=== PATIENT | female | born 1995 | race Caucasian/White ===

== ENCOUNTER → 2016-12-31 | Outpatient (CLI) | payer OTHER ==
[~2016-12-31] MED LIST: ALPRAZOLAM0.25 M2 PO; AVPAK AZITHROM250 MG PO; BACTRIM DS 8001 TA1 PO; CIPRODEX 0.3%-7.5 ML OT; EFFEXOR XR75 M2 PO; JUNEL PO; LAMICTAL200 MG PO; LAMOTRIGINE100 MG PO; LAMOTRIGINE25 M1 PO; MOTRIN800 MG PO; ROBITUSSIN AC 110 ML PO; WELLBUTRIN XL150 MG PO; XANAX0.25 MG PO; ZITHROMAX Z PA250 MG PO; ZOFRAN ODT4 MG SL; Zofran4 MG PO
== END | disposition home or self-care (01) ==
LOC: US 09:13
DX: R10.11 Right upper quadrant pain (principal)

== ENCOUNTER → 2017-02-12 | Outpatient (CLI) | payer OTHER | END | disposition home or self-care (01) | LOC: NM 08:42 | DX: K30 Functional dyspepsia (principal) ==

== ENCOUNTER 2017-03-31 07:10 | Emergency (ER) | payer OTHER ==
[~2017-03-31] VITALS: Ht 162.5 cm; Wt 60.3 kg
[2017-03-31] MEDS ORDERED: DIFLUCAN150 MG PO (08:06)
== END 2017-03-31 08:10 | disposition home or self-care (01) ==
LOC: ED 07:10
DX: N76.0 Acute vaginitis (principal); G43.909 Migraine, unspecified, not intractable, without status migrainosus; Z88.0 Allergy status to penicillin; Z91.010 Allergy to peanuts; Z79.899 Other long term (current) drug therapy

== ENCOUNTER 2017-05-25 04:06 | Emergency (ER) | payer MEDICAID ==
[~2017-05-25] VITALS: Ht 162.5 cm; Wt 60.3 kg
[~2017-05-25 04:06] MED LIST changes: +DIFLUCAN150 MG PO
[2017-05-25] MEDS ORDERED: PSEUDOEPHEDRINE60 MG PO (05:06)
[2017-05-25] MEDS ORDERED: ZITHROMAX250 MG PO (05:06)
== END 2017-05-25 05:19 | disposition home or self-care (01) ==
LOC: ED 04:06
DX: H65.03 Acute serous otitis media, bilateral (principal); J02.9 Acute pharyngitis, unspecified; R09.81 Nasal congestion; R05 Cough; G43.909 Migraine, unspecified, not intractable, without status migrainosus; F17.200 Nicotine dependence, unspecified, uncomplicated; Z88.0 Allergy status to penicillin; Z91.010 Allergy to peanuts

== ENCOUNTER → 2017-06-27 | Outpatient (CLI) | payer OTHER ==
[~2017-06-27] MED LIST changes: +PSEUDOEPHEDRINE60 MG PO; +ZITHROMAX250 MG PO
[2017-06-27 10:03] LABS: BASO % 0.2 % (0.0-1.0); EOS # 0.1 10*3/uL (0.0-0.4); EOS % 0.8 % (1.0-4.0); HEMATOCRIT 40.5 % (37.0-47.0); HEMOGLOBIN 13.4 g/dl (12.0-16.0); LYMPH # 2.1 10*3/uL (1.3-4.4); LYMPH % 17.7 % (27.0-41.0); MEAN CELL VOLUME 90.2 fl (81.0-99.0); MEAN CORPUSCULAR HGB 29.8 pg (27.0-31.0); MEAN CORPUSCULAR HGB CONC 33.1 g/dl (33.0-37.0); MEAN PLATELET VOLUME 10.1 fl (9.6-12.3); MONO # 0.9 10*3/uL (0.1-1.0); MONO % 7.6 % (3.0-9.0); NEUT # 8.5 10*3/uL (2.3-7.9); NEUT % 73.4 % (47.0-73.0); PLATELET COUNT AUTOMATED 297 10*3/uL (130-400); RED BLOOD COUNT 4.49 10*6/uL (4.10-5.10); RED CELL DISTRI WIDTH 12.1 % (0-14.5); WHITE BLOOD COUNT 11.6 10*3/uL (4.8-10.8)
[2017-06-27 10:19] LABS: ALKALINE PHOSPHATASE 86 U/L (45-117); BUN 5 mg/dl (7-24); CHLORIDE 105 mmol/L (98-107); CREATININE 0.53 mg/dL (0.55-1.02); SGOT/AST 11 IU/L (3-35); SGPT/ALT 15 U/L (12-78); SODIUM 141 mmol/L (136-145)
== END | disposition home or self-care (01) ==
LOC: LAB 09:23
PROVIDERS: Nurse Practitioner Primary Care
DX: M25.561 Pain in right knee (principal); R20.8 Other disturbances of skin sensation

== ENCOUNTER → 2017-09-05 | Outpatient (CLI) | payer OTHER | END | disposition home or self-care (01) | LOC: US 09:16 | DX: R10.84 Generalized abdominal pain (principal); R10.11 Right upper quadrant pain ==

== ENCOUNTER → 2017-09-30 | Outpatient (CLI) | payer OTHER ==
[2017-09-30 07:58] LABS: BASO % 0.2 % (0.0-1.0); EOS # 0.1 10*3/uL (0.0-0.4); EOS % 0.8 % (1.0-4.0); HEMATOCRIT 38.8 % (37.0-47.0); HEMOGLOBIN 13.1 g/dl (12.0-16.0); LYMPH # 2.1 10*3/uL (1.3-4.4); LYMPH % 23.7 % (27.0-41.0); MEAN CELL VOLUME 88.6 fl (81.0-99.0); MEAN CORPUSCULAR HGB 29.9 pg (27.0-31.0); MEAN CORPUSCULAR HGB CONC 33.8 g/dl (33.0-37.0); MEAN PLATELET VOLUME 10.4 fl (9.6-12.3); MONO # 0.6 10*3/uL (0.1-1.0); MONO % 7.2 % (3.0-9.0); NEUT % 67.8 % (47.0-73.0); PLATELET COUNT AUTOMATED 246 10*3/uL (130-400); RED BLOOD COUNT 4.38 10*6/uL (4.10-5.10); RED CELL DISTRI WIDTH 12.3 % (0-14.5); WHITE BLOOD COUNT 8.9 10*3/uL (4.8-10.8)
[2017-09-30 08:27] LABS: ALBUMIN 4.1 gm/dl (3.1-4.5); ALKALINE PHOSPHATASE 77 U/L (45-117); BUN 8 mg/dl (7-24); CHLORIDE 104 mmol/L (98-107); CREATININE 0.57 mg/dL (0.55-1.02); LIPASE 114 U/L (73-393); POTASSIUM 3.9 mmol/L (3.5-5.1); SGOT/AST 11 IU/L (3-35); SGPT/ALT 15 U/L (12-78); SODIUM 138 mmol/L (136-145); TOTAL PROTEIN 7.1 gm/dL (6.4-8.2)
== END | disposition home or self-care (01) ==
LOC: LAB 06:59
PROVIDERS: Specialist
DX: R10.9 Unspecified abdominal pain (principal); R11.2 Nausea with vomiting, unspecified; Z87.898 Personal history of other specified conditions

== ENCOUNTER → 2017-10-01 | Outpatient (CLI) | payer OTHER | END | disposition home or self-care (01) | LOC: NM 09-30 06:51 | DX: R10.9 Unspecified abdominal pain (principal) ==

== ENCOUNTER 2019-03-24 18:17 | Emergency (ER) | payer OTHER ==
[~2019-03-24] VITALS: Ht 162.5 cm; Wt 63.5 kg
[2019-03-24] MEDS ORDERED: VIBRAMYCIN100 MG PO (18:37)
== END 2019-03-24 18:51 | disposition home or self-care (01) ==
LOC: ED 18:17
DX: H66.41 Suppurative otitis media, unspecified, right ear (principal); Z88.0 Allergy status to penicillin; Z91.010 Allergy to peanuts

== ENCOUNTER 2022-01-04 18:43 | Emergency (ER) | payer OTHER ==
[~2022-01-04] VITALS: Ht 162.5 cm; Wt 55.8 kg
[~2022-01-04 18:43] MED LIST changes: +VIBRAMYCIN100 MG PO
[2022-01-04] MEDS ORDERED: DEPAKENE250 M1 PO (19:01)
[2022-01-04] MEDS ORDERED: PROTONIX TR40 M1 PO (19:01)
[2022-01-04] MEDS ORDERED: ZOFRAN4 MG PO (19:02)
[2022-01-04] MEDS ORDERED: ADDERALL 20 MG20 MG PO (19:04)
[2022-01-04 19:25] LABS: BASO % 0.2 % (0.0-1.0); EOS # 0.2 10*3/uL (0.0-0.4); EOS % 1.6 % (1.0-4.0); HEMATOCRIT 36.4 % (37.0-47.0); LYMPH # 2.2 10*3/uL (1.3-4.4); LYMPH % 24.5 % (27.0-41.0); MEAN CELL VOLUME 93.3 fl (81.0-99.0); MEAN CORPUSCULAR HGB 31.5 pg (27.0-31.0); MEAN CORPUSCULAR HGB CONC 33.8 g/dl (33.0-37.0); MEAN PLATELET VOLUME 10.1 fl (9.6-12.3); MONO # 0.8 10*3/uL (0.1-1.0); MONO % 9.2 % (3.0-9.0); NEUT # 5.9 10*3/uL (2.3-7.9); NEUT % 64.2 % (47.0-73.0); PLATELET COUNT AUTOMATED 203 10*3/uL (130-400); RED CELL DISTRI WIDTH 12.6 % (0-14.5); WHITE BLOOD COUNT 9.1 10*3/uL (4.8-10.8)
[2022-01-04 19:40] LABS: BILIRUBIN Negative (Negative); BLOOD Negative (Negative); CLARITY Clear (Clear); COLOR Yellow (Yellow); GLUCOSE Negative (Negative); KETONE Negative (Negative); LEUKO ESTERASE Negative (Negative); NITRITE Negative (Negative); PH 7.5 (4.5-8.0); SPECIFIC GRAVITY 1.015 (1.001-1.030)
[2022-01-04 19:47] LABS: ALKALINE PHOSPHATASE 50 U/L (45-117); BUN 11 mg/dl (7-24); CHLORIDE 108 mmol/L (98-107); CREATININE 0.58 mg/dL (0.55-1.02); POTASSIUM 3.9 mmol/L (3.5-5.1); SGOT/AST 7 IU/L (3-35); SGPT/ALT 17 U/L (12-78); SODIUM 140 mmol/L (136-145); TOTAL PROTEIN 6.5 gm/dL (6.4-8.2)
[2022-01-04 20:01] LABS: BACTERIA TRACE; WBC 0-2 wbc/hpf (0-5)
== END 2022-01-04 20:48 | disposition home or self-care (01) ==
LOC: ED 18:43
PROVIDERS: Nurse Practitioner Family
DX: R10.32 Left lower quadrant pain (principal); R14.0 Abdominal distension (gaseous); Z88.0 Allergy status to penicillin; Z91.010 Allergy to peanuts; Z79.899 Other long term (current) drug therapy

== ENCOUNTER 2022-11-17 14:19 | Emergency (ER) | payer OTHER ==
[~2022-11-17] VITALS: Ht 162.6 cm; Wt 49.0 kg
[~2022-11-17 14:19] MED LIST changes: +ADDERALL 20 MG20 MG PO; +DEPAKENE250 M1 PO; +PROTONIX TR40 M1 PO; +ZOFRAN4 MG PO
[2022-11-17] MEDS ORDERED: AVPAK AZITHROM250 MG PO (14:43)
== END 2022-11-17 14:47 | disposition home or self-care (01) ==
LOC: ED 14:19
DX: S60.411A Abrasion of left index finger, initial encounter (principal); S60.511A Abrasion of right hand, initial encounter; S60.512A Abrasion of left hand, initial encounter; Z88.0 Allergy status to penicillin; Z91.010 Allergy to peanuts; Z79.899 Other long term (current) drug therapy; W55.01XA Bitten by cat, initial encounter; Y93.89 Activity, other specified; Y92.89 Other specified places as the place of occurrence of the external cause; Y99.8 Other external cause status

== ENCOUNTER 2025-02-14 20:12 | Emergency (ER) | payer OTHER ==
[~2025-02-14] VITALS: Ht 162.5 cm; Wt 60.8 kg
[2025-02-14] MEDS ORDERED: MORPHINE Sulfate 2 MG/ML SYR IV ONE ×3 (20:35→22:05)
[2025-02-14] MEDS ORDERED: Ondansetron Hydrochloride 4 MG/2 ML VIAL IV ONE (21:10)
[2025-02-14] MEDS ORDERED: SODIUM CHLORIDE 0.9% 1,000 ML IV ONE (21:10)
[2025-02-14 21:45] LABS: BASO % 0.1 % (0.0-1.0); HEMATOCRIT 40.7 % (37.0-47.0); MEAN CELL VOLUME 91.5 fl (81.0-99.0); MEAN CORPUSCULAR HGB 31.9 pg (27.0-31.0); MEAN CORPUSCULAR HGB CONC 34.9 g/dl (33.0-37.0); MEAN PLATELET VOLUME 9.7 fl (9.6-12.3); MONO # 1.3 10*3/uL (0.1-1.0); NEUT # 18.1 10*3/uL (2.3-7.9); NEUT % 85.5 % (47.0-73.0); PLATELET COUNT AUTOMATED 344 10*3/uL (130-400); RED BLOOD COUNT 4.45 10*6/uL (4.10-5.10); RED CELL DISTRI WIDTH 12.6 % (0-14.5); WHITE BLOOD COUNT 21.1 10*3/uL (4.8-10.8)
[2025-02-14 22:02] LABS: ALKALINE PHOSPHATASE 61 U/L (46-116); BUN 17 mg/dl (9-23); CHLORIDE 109 mmol/L (98-107); LIPASE 32 U/L (12-53); POTASSIUM 3.8 mmol/L (3.4-5.1); SGPT/ALT 12 U/L (5-49); TOTAL PROTEIN 7.2 gm/dL (6.0-8.0)
[2025-02-14 22:51] LABS: BILIRUBIN Negative (Negative); BLOOD Negative (Negative); CLARITY Clear (Clear); COLOR Yellow (Yellow); GLUCOSE Negative (Negative); KETONE 1+ (Negative); LEUKO ESTERASE Trace (Negative); NITRITE Negative (Negative); PH 5.5 (4.5-8.0); SPECIFIC GRAVITY >= 1.030 (1.001-1.030)
[2025-02-15 00:01] LABS: EPITHELIAL CELLS 16-20; MUCOUS TRACE
[2025-02-15 00:02] LABS: BACTERIA TRACE
== END 2025-02-15 01:12 | disposition home or self-care (01) ==
LOC: ED 20:12
PROVIDERS: Emergency Medicine
DX: S30.1XXA Contusion of abdominal wall, initial encounter (principal); S20.112A Abrasion of breast, left breast, initial encounter; S40.212A Abrasion of left shoulder, initial encounter; R11.10 Vomiting, unspecified; G43.909 Migraine, unspecified, not intractable, without status migrainosus; Z88.5 Allergy status to narcotic agent; Z91.010 Allergy to peanuts; Z79.899 Other long term (current) drug therapy; Y04.2XXA Assault by strike against or bumped into by another person, initial encounter; Y93.89 Activity, other specified; Y92.89 Other specified places as the place of occurrence of the external cause; Y99.8 Other external cause status

== ENCOUNTER 2025-02-19 04:15 | Emergency (ER) | payer OTHER ==
[~2025-02-19] VITALS: Ht 162.6 cm; Wt 61.7 kg
[2025-02-19] MEDS ORDERED: FAMOTIDINE 50 ML IV ONE (04:50)
[2025-02-19] MEDS ORDERED: diphenhydrAMINE hydrochloride 50 MG/ML VIAL IV ONE (04:50)
[2025-02-19] MEDS ORDERED: methylPREDNISolone sod succ 125 MG VIAL IV ONE (04:50)
[2025-02-19] MEDS ORDERED: PEPCID20 MG PO (06:08)
[2025-02-19] MEDS ORDERED: PREDNISONE20 M1 PO (06:08)
== END 2025-02-19 06:28 | disposition home or self-care (01) ==
LOC: ED 04:15
DX: L50.0 Allergic urticaria (principal); F41.9 Anxiety disorder, unspecified; G43.909 Migraine, unspecified, not intractable, without status migrainosus; Z79.899 Other long term (current) drug therapy; Z88.0 Allergy status to penicillin; Z91.010 Allergy to peanuts